=== PATIENT | female | born 1995 | race African-American/Black ===

== ENCOUNTER 2022-10-09 19:25 | Emergency (ER) | payer OTHER ==
[~2022-10-09] VITALS: Ht 170.2 cm; Wt 57.6 kg
--- NOTE | 2022-10-09 19:47 | NUR ---
Dr Padilla into eval patient.
[2022-10-09] MEDS ORDERED: OXYCODONE/APAP 5-325 MG TABLET ONE (19:56)
[2022-10-09] MEDS ORDERED: OXYCODONE/APAP 5-325 MG TABLET PO ONE (20:00)
--- NOTE | 2022-10-09 21:15 | NUR ---
Patient lying in bed talking to roomate, informed of plan of care, aware awaiting lab results before going for xray. No s/s of any distress noted at this time.
[2022-10-09 21:27] LABS: *URINE HCG, QUAL POSITIVE (NEGATIVE)
[2022-10-09] MEDS ORDERED: HYDR-3972 PO (22:46)
[2022-10-09 23:21] VITALS: BP 115/69
--- NOTE | 2022-10-09 23:21 | NUR ---
Patient discharged to home in stable condition with friend taking patient home. Written and verbal after care instructions given. Patient verbalizes understanding of instructions. Stressed follow up or return to ER for worsening s/s.
== END 2022-10-09 23:21 | disposition home or self-care (01) ==
LOC: ER 19:25
DX: S63.502A Unspecified sprain of left wrist, initial encounter (principal); V47.6XXA Car passenger injured in collision with fixed or stationary object in traffic accident, initial encounter; Y92.410 Unspecified street and highway as the place of occurrence of the external cause; O9A.219 Injury, poisoning and certain other consequences of external causes complicating pregnancy, unspecified trimester; Z3A.00 Weeks of gestation of pregnancy not specified; S60.222A Contusion of left hand, initial encounter; S80.12XA Contusion of left lower leg, initial encounter
CPT/HCPCS: 73110; 73120; 84703; A4663